=== PATIENT | female | born 1955 | race Caucasian/White ===

== ENCOUNTER → 2020-03-26 | Outpatient (CLI) | payer OTHER ==
[2020-03-26 09:57] LABS: Basophils # (auto) 0.1 10 ^3/uL (0-0.2); Basophils % (auto) 0.9 % (0.0-2.0); Eosinophils # (auto) 0.4 10 ^3/uL (0-0.8); Eosinophils % (auto) 5.2 % (0.0-7.0); Hematocrit 49.9 % (36.0-46.0); Hemoglobin 16.3 g/dL (12.2-16.2); Lymphocytes # (auto) 3.3 10 ^3/uL (0.4-5.4); Lymphocytes % (auto) 40.4 % (10.0-50.0); Mean Corpuscular Hemoglobin 28.2 pg (28.0-32.0); Mean Corpuscular Hgb Conc. 32.6 g/dL (32.0-36.0); Mean Corpuscular Volume 86.7 fL (80.0-100.0); Monocytes # (auto) 0.6 10 ^3/uL (0-1.3); Monocytes % (auto) 7.1 % (0.0-12.0); Neutrophils # (auto) 3.8 10 ^3/uL (1.6-8.6); Neutrophils % (auto) 46.4 % (37.0-80.0); Nucleated Red Blood Cells % 0.1 %; Platelet Count (auto) 310 10^3/uL (140-450); Red Blood Cells 5.76 10^6/uL (4.0-5.20); Red Cell Distribution Width 14.3 % (11.8-14.3); White Blood Cell 8.3 10^3/uL (4.4-10.8)
[2020-03-26 10:49] LABS: Calcium 9.6 mg/dL (8.5-10.1); Potassium 4.9 mmol/L (3.5-5.1)
[2020-03-26 10:53] LABS: BUN/Creatinine Ratio 18.9; Bilirubin, Total 0.7 mg/dL (0.2-1.0); Total Protein 8.6 g/dL (6.4-8.2)
[2020-03-28 14:32] LABS: Urine Bacteria FEW /hpf (None Seen); Urine Blood Negative /uL (Negative); Urine Specific Gravity 1.013 (1.001-1.035); Urine WBC 1 /hpf (0 - 5)
== END | disposition home or self-care (01) ==
LOC: LAB 09:36
PROVIDERS: ATTEND Internal Medicine
DX: R73.03 Prediabetes (principal); E78.5 Hyperlipidemia, unspecified; R10.9 Unspecified abdominal pain
CPT/HCPCS: 36415; 80053; 80061; 81001; 82043; 82270; 83036; 84156; 84166; 84443; 85025

== ENCOUNTER → 2020-04-04 | Outpatient (CLI) | payer OTHER | END | disposition home or self-care (01) | LOC: LAB 15:42 | PROVIDERS: ATTEND Nurse Practitioner Family | DX: Z03.818 Encounter for observation for suspected exposure to other biological agents ruled out (principal) ==

== ENCOUNTER → 2020-07-19 | Outpatient (CLI) | payer OTHER ==
[2020-07-19 09:44] LABS: Basophils # (auto) 0.1 10 ^3/uL (0-0.2); Eosinophils # (auto) 0.5 10 ^3/uL (0-0.8); Eosinophils % (auto) 6.5 % (0.0-7.0); Hematocrit 47.4 % (36.0-46.0); Hemoglobin 15.2 g/dL (12.2-16.2); Lymphocytes # (auto) 2.9 10 ^3/uL (0.4-5.4); Lymphocytes % (auto) 41.2 % (10.0-50.0); Mean Corpuscular Hemoglobin 28.1 pg (28.0-32.0); Mean Corpuscular Hgb Conc. 31.9 g/dL (32.0-36.0); Mean Corpuscular Volume 87.9 fL (80.0-100.0); Monocytes # (auto) 0.6 10 ^3/uL (0-1.3); Monocytes % (auto) 8.4 % (0.0-12.0); Neutrophils % (auto) 42.9 % (37.0-80.0); Nucleated Red Blood Cells % 0.1 %; Platelet Count (auto) 271 10^3/uL (140-450); Red Cell Distribution Width 13.7 % (11.8-14.3)
[2020-07-19 09:47] LABS: Urine Bacteria FEW /hpf (None Seen); Urine Blood Negative /uL (Negative); Urine Specific Gravity 1.011 (1.001-1.035); Urine WBC 2 /hpf (0 - 5)
[2020-07-19 10:18] LABS: Cholesterol 229 mg/dL (< 200); HDL Cholesterol 35 mg/dL (40-59); LDL Cholesterol 158 mg/dL (< 100); Triglycerides 317 mg/dL (< 150)
== END | disposition home or self-care (01) ==
LOC: LAB 09:24
PROVIDERS: ATTEND Internal Medicine
DX: R73.03 Prediabetes (principal)
CPT/HCPCS: 36415; 80061; 81001; 85025

== ENCOUNTER → 2020-08-09 | Outpatient (CLI) | payer OTHER | END | disposition home or self-care (01) | LOC: XYW 08:07 | PROVIDERS: ATTEND Internal Medicine | DX: I08.1 Rheumatic disorders of both mitral and tricuspid valves (principal); J98.4 Other disorders of lung; I27.20 Pulmonary hypertension, unspecified | CPT/HCPCS: 93306 ==

== ENCOUNTER 2021-04-24 11:02 | Inpatient (IN) | payer OTHER ==
[~2021-04-24] VITALS: Ht 167.6 cm; Wt 102.2 kg
[2021-04-24 12:07] LABS: Basophils # (auto) 0.1 10 ^3/uL (0-0.2); Basophils % (auto) 1.1 % (0.0-2.0); Eosinophils # (auto) 0.5 10 ^3/uL (0-0.8); Eosinophils % (auto) 5.5 % (0.0-7.0); Hematocrit 45.4 % (36.0-46.0); Hemoglobin 15.3 g/dL (12.2-16.2); Lymphocytes # (auto) 3.8 10 ^3/uL (0.4-5.4); Lymphocytes % (auto) 38.5 % (10.0-50.0); Mean Corpuscular Hemoglobin 29.3 pg (28.0-32.0); Mean Corpuscular Hgb Conc. 33.6 g/dL (32.0-36.0); Monocytes # (auto) 0.7 10 ^3/uL (0-1.3); Monocytes % (auto) 7.4 % (0.0-12.0); Neutrophils # (auto) 4.8 10 ^3/uL (1.6-8.6); Neutrophils % (auto) 47.5 % (37.0-80.0); Platelet Count (auto) 300 10^3/uL (140-450); Red Blood Cells 5.22 10^6/uL (4.0-5.20)
[2021-04-24 12:22] LABS: Albumin 3.6 g/dL (3.4-5.0); Anion Gap 4 (5-15); Blood Urea Nitrogen 17 mg/dL (7-18); Calcium 9.3 mg/dL (8.5-10.1); Carbon Dioxide 28 mmol/L (21-32); Chloride 106 mmol/L (98-107); Glucose 148 mg/dL (74-106); Potassium 4.5 mmol/L (3.5-5.1); Sodium 138 mmol/L (136-145)
[2021-04-24 12:34] LABS: Alkaline Phosphatase 54 U/L (45-117); Aspartate Aminotransferase 41 U/L (15-37); GFR African American 101 mL/min; GFR Non-African American 83 mL/min
[2021-04-24 12:35] LABS: Alanine Aminotransferase 42 U/L (13-56); Bilirubin, Total 0.6 mg/dL (0.2-1.0); Total Protein 8.2 g/dL (6.4-8.2)
[2021-04-24] MEDS ORDERED: ASPirin 81 mg TAB PO ONE (13:30)
[2021-04-24 14:01] LABS: INR 0.99 (0.9-1.15); Partial Thromboplastin Time 26.3 sec (23.0-31.2)
[2021-04-24] MEDS ORDERED: IOHEXOL 350 MG/ML 100ML IJ ONE (16:23)
[2021-04-24] MEDS ORDERED: NITROGLYCERIN 0.4 MG SL TAB SL PRN (18:00)
[2021-04-24] MEDS ORDERED: ONDANSETRON HCL 4 MG/2 ML VIAL IV PRN (18:00)
[2021-04-24] MEDS ORDERED: HYDROcodone-ACET 5/325MG TAB PO PRN (18:00)
[2021-04-24] MEDS ORDERED: MORPHINE SULF INJ 2 MG/ML SYRINGE 1ML IV PRN ×2 (18:00)
[2021-04-24] MEDS ORDERED: NITROGLYCERIN 0.4MG/HR TOPICAL PATCH TD ONE (18:00)
[2021-04-24] MEDS ORDERED: hydrALAZINE HCL 20 MG/ML VL IV PRN (18:00)
[2021-04-24] MEDS ORDERED: DEXTROSE (50%) 50ML SYRG IV PRN (18:00)
[2021-04-24 18:57] LABS: Cholesterol 234 mg/dL (< 200)
[2021-04-24 19:00] LABS: HDL Cholesterol 37 mg/dL (40-59); LDL Cholesterol 166 mg/dL (< 100); Triglycerides 207 mg/dL (< 150)
[2021-04-24 22:00] VITALS: BP 126/57
[2021-04-24] MEDS: InsuLIN REG 1unit/0.01ml Soln (100units/ml) SC SCH (22:00)
[2021-04-24 23:00] VITALS: BP 126/57
[2021-04-25] MEDS: ACCU-CHEK COMFORT CURVE STRIP VI SCH ×5 (00:14→23:04)
[2021-04-25] MEDS: ATORVASTATIN 20 MG TAB PO SCH ×2 (00:18→23:09)
[2021-04-25] MEDS: METOPROLOL TARTRATE 25 MG TAB PO SCH ×2 (00:20→10:00)
[2021-04-25 05:04] VITALS: BP 103/58
[2021-04-25] MEDS ORDERED: IBUP200T76 PO (05:10)
[2021-04-25] MEDS ORDERED: VITA100072 PO (05:10)
[2021-04-25] MEDS ORDERED: CALC-332 OR (05:10)
[2021-04-25] MEDS ORDERED: TURM500C PO (05:10)
[2021-04-25] MEDS ORDERED: IBUP800T26 PO (05:10)
[2021-04-25] MEDS ORDERED: ASCO-22 PO (05:10)
[2021-04-25] MEDS ORDERED: METF-370 PO (05:10)
[2021-04-25] MEDS ORDERED: GOLD500C3 PO (05:10)
[2021-04-25] MEDS ORDERED: [UNRECOGNIZED DRUG - CODE] PO (05:10)
[2021-04-25] MEDS ORDERED: CYAN250L PO (05:10)
[2021-04-25] MEDS ORDERED: SENN-58 PO (05:10)
[2021-04-25] MEDS: InsuLIN REG 1unit/0.01ml Soln (100units/ml) SC SCH ×4 (06:13→22:00)
[2021-04-25] MEDS: ACETAMINOPHEN 500 MG TAB PO PRN (06:48)
[2021-04-25 08:00] VITALS: BP 131/65
[2021-04-25] MEDS: NICOTINE 14 MG/24HR TOPICAL PATCH TD SCH (10:00)
[2021-04-25 12:00] VITALS: BP 124/58
[2021-04-25] MEDS: ASPirin-EC 81 mg tab PO SCH (12:04)
[2021-04-25] MEDS: FAMOTIDINE 20 MG TAB PO SCH (12:05)
[2021-04-25] MEDS: LISINOPRIL 10 MG TAB PO SCH (12:05)
[2021-04-25 17:00] VITALS: BP 130/68
[2021-04-25 22:00] VITALS: BP 105/56
[2021-04-26 05:00] VITALS: BP 96/57
[2021-04-26] MEDS: ACCU-CHEK COMFORT CURVE STRIP VI SCH ×2 (07:00→11:30)
[2021-04-26] MEDS: InsuLIN REG 1unit/0.01ml Soln (100units/ml) SC SCH ×2 (07:00→11:30)
[2021-04-26 08:15] VITALS: BP 114/61
[2021-04-26 08:49] VITALS: BP 114/61
[2021-04-26] MEDS: ASPirin-EC 81 mg tab PO SCH (09:46)
[2021-04-26] MEDS: NICOTINE 14 MG/24HR TOPICAL PATCH TD SCH (09:47)
[2021-04-26] MEDS: LISINOPRIL 10 MG TAB PO SCH (09:47)
[2021-04-26] MEDS: FAMOTIDINE 20 MG TAB PO SCH (09:47)
[2021-04-26] MEDS ORDERED: ATOR20TA PO (10:33)
[2021-04-26] MEDS ORDERED: LISI20TA28 PO (10:33)
[2021-04-26] MEDS ORDERED: NIC21P TOP (10:34)
[2021-04-26 12:31] VITALS: BP 114/61
[2021-04-26] MEDS: ACETAMINOPHEN 500 MG TAB PO PRN (12:56)
== END 2021-04-26 14:15 | disposition home or self-care (01) | DRG 313 ==
LOC: ER 11:02 → TELE 17:58 → TELE-CENTR 22:48
PROVIDERS: ADMIT Nurse Practitioner Acute Care; ATTEND Internal Medicine
DX: R07.89 Other chest pain (principal); I50.33 Acute on chronic diastolic (congestive) heart failure; I27.20 Pulmonary hypertension, unspecified; K76.0 Fatty (change of) liver, not elsewhere classified; K80.20 Calculus of gallbladder without cholecystitis without obstruction; E11.9 Type 2 diabetes mellitus without complications; J44.9 Chronic obstructive pulmonary disease, unspecified; E66.01 Morbid (severe) obesity due to excess calories; Z91.14 Patient's other noncompliance with medication regimen; Z20.822 Contact with and (suspected) exposure to COVID-19; Z88.0 Allergy status to penicillin; Z68.35 Body mass index [BMI] 35.0-35.9, adult; E78.5 Hyperlipidemia, unspecified; F12.90 Cannabis use, unspecified, uncomplicated; F17.210 Nicotine dependence, cigarettes, uncomplicated; I11.0 Hypertensive heart disease with heart failure; I25.10 Atherosclerotic heart disease of native coronary artery without angina pectoris; K44.9 Diaphragmatic hernia without obstruction or gangrene; Z79.84 Long term (current) use of oral hypoglycemic drugs; Z82.49 Family history of ischemic heart disease and other diseases of the circulatory system; Z90.710 Acquired absence of both cervix and uterus
CPT/HCPCS: 36415; 71046; 71275; 78452; 80053; 80061; 82962; 83735; 83880; 84443; 84484; 85025; 85379; 85610; 85730; 86141; 87426; 93005; 93017; 93306; G0378

== ENCOUNTER → 2021-04-24 | Outpatient (CLI) | payer OTHER ==
[~2021-04-24] MED LIST: ASCO-22 PO; CALC-332 OR; CYAN250L PO; GOLD500C3 PO; IBUP200T76 PO; IBUP800T26 PO; METF-370 PO; SENN-58 PO; TURM500C PO; VITA100072 PO; [UNRECOGNIZED DRUG - CODE] PO
== END | disposition home or self-care (01) ==
LOC: LAB 07:22
PROVIDERS: ATTEND Internal Medicine
DX: Z12.11 Encounter for screening for malignant neoplasm of colon (principal); E11.9 Type 2 diabetes mellitus without complications
CPT/HCPCS: 82043; 82962

== ENCOUNTER → 2021-05-23 | Outpatient (CLI) | payer OTHER ==
[~2021-05-23] MED LIST changes: +ATOR20TA PO; +LISI20TA28 PO; +NIC21P TOP
[2021-05-23 09:13] LABS: Albumin 3.8 g/dL (3.4-5.0)
[2021-05-23 09:19] LABS: Bilirubin, Direct 0.2 mg/dL (0-0.2); Bilirubin, Total 0.8 mg/dL (0.2-1.0); Total Protein 8.1 g/dL (6.4-8.2)
== END | disposition home or self-care (01) ==
LOC: LAB 07:05
PROVIDERS: ATTEND Internal Medicine
DX: E78.5 Hyperlipidemia, unspecified (principal)
CPT/HCPCS: 36415; 80076; 82270

== ENCOUNTER → 2021-08-26 | Outpatient (CLI) | payer OTHER ==
[~2021-08-26] MED LIST changes: -LISI20TA28 PO
[2021-08-26 08:38] LABS: Albumin 3.5 g/dL (3.4-5.0); Bilirubin, Direct 0.1 mg/dL (0-0.2)
[2021-08-26 08:41] LABS: Bilirubin, Total 0.4 mg/dL (0.2-1.0); Total Protein 7.5 g/dL (6.4-8.2)
== END | disposition home or self-care (01) ==
LOC: LAB 07:33
PROVIDERS: ATTEND Internal Medicine
DX: E78.5 Hyperlipidemia, unspecified (principal)
CPT/HCPCS: 36415; 80076

== ENCOUNTER → 2021-11-18 | Outpatient (CLI) | payer OTHER ==
[2021-11-18 09:11] LABS: Albumin 3.7 g/dL (3.4-5.0); Bilirubin, Direct 0.2 mg/dL (0-0.2); Bilirubin, Total 0.5 mg/dL (0.2-1.0); Total Protein 7.4 g/dL (6.4-8.2)
== END | disposition home or self-care (01) ==
LOC: LAB 07:12
PROVIDERS: ATTEND Internal Medicine
DX: E11.9 Type 2 diabetes mellitus without complications (principal); E78.5 Hyperlipidemia, unspecified
CPT/HCPCS: 36415; 80061; 80076; 83036

== ENCOUNTER → 2022-02-04 | Outpatient (CLI) | payer OTHER ==
[2022-02-04 09:00] LABS: Cholesterol 128 mg/dL (< 200); HDL Cholesterol 36 mg/dL (40-59); LDL Cholesterol 68 mg/dL (< 100); Triglycerides 142 mg/dL (< 150)
== END | disposition home or self-care (01) ==
LOC: LAB 07:19
PROVIDERS: ATTEND Internal Medicine
DX: E11.9 Type 2 diabetes mellitus without complications (principal); E78.5 Hyperlipidemia, unspecified
CPT/HCPCS: 36415; 80061; 82043; 83036

== ENCOUNTER → 2022-05-28 | Outpatient (CLI) | payer OTHER ==
[2022-05-28 08:30] LABS: Albumin 3.9 g/dL (3.4-5.0); Calcium 9.2 mg/dL (8.5-10.1); Potassium 4.6 mmol/L (3.5-5.1)
[2022-05-28 08:33] LABS: Bilirubin, Direct 0.2 mg/dL (0-0.2); Bilirubin, Total 0.6 mg/dL (0.2-1.0)
== END | disposition home or self-care (01) ==
LOC: LAB 07:38
PROVIDERS: ATTEND Internal Medicine
DX: E78.5 Hyperlipidemia, unspecified (principal); E11.9 Type 2 diabetes mellitus without complications
CPT/HCPCS: 36415; 80053; 80076; 82607

== ENCOUNTER 2022-06-02 15:11 | Emergency (ER) | payer OTHER ==
[~2022-06-02] VITALS: Ht 165.1 cm; Wt 81.2 kg
[2022-06-02 15:12] VITALS: BP 110/76
[2022-06-02] MEDS ORDERED: cefTRIAXone SOD 1,000 MG VL IM ONE (18:15)
[2022-06-02] MEDS ORDERED: CEPH-509 PO (18:15)
[2022-06-02] MEDS ORDERED: HYDR-4902 PO (18:18)
[2022-06-02] MEDS ORDERED: HYDROcodone-ACET 10/325MG TAB PO ONE (18:30)
== END 2022-06-02 19:06 | disposition home or self-care (01) ==
LOC: ER 15:11 → EDBD 15:11 → ER 19:06
DX: S01.81XA Laceration without foreign body of other part of head, initial encounter (principal); E11.9 Type 2 diabetes mellitus without complications; I10 Essential (primary) hypertension; F17.210 Nicotine dependence, cigarettes, uncomplicated; M25.512 Pain in left shoulder; Z90.710 Acquired absence of both cervix and uterus; Z88.0 Allergy status to penicillin; V80.010A Animal-rider injured by fall from or being thrown from horse in noncollision accident, initial encounter; Y93.89 Activity, other specified; Y92.89 Other specified places as the place of occurrence of the external cause; Y99.8 Other external cause status
CPT/HCPCS: 12015; 70450; 72192; 73030; 93005; 96372; 99284; J0696

== ENCOUNTER → 2022-10-06 | Outpatient (CLI) | payer OTHER ==
[~2022-10-06] MED LIST changes: +CEPH-509 PO; +HYDR-4902 PO
[2022-10-06 08:30] LABS: Urine Blood Negative /uL (Negative); Urine Specific Gravity 1.018 (1.001-1.035)
[2022-10-06 13:35] LABS: Cholesterol 155 mg/dL (< 200); HDL Cholesterol 36 mg/dL (40-59); LDL Cholesterol 104 mg/dL (< 100); Triglycerides 231 mg/dL (< 150)
== END | disposition home or self-care (01) ==
LOC: LAB 08:05
PROVIDERS: ATTEND Internal Medicine
DX: E11.9 Type 2 diabetes mellitus without complications (principal)
CPT/HCPCS: 36415; 80061; 81003; 82043; 83036

== ENCOUNTER → 2023-01-14 | Outpatient (CLI) | payer OTHER ==
[2023-01-14 09:20] LABS: Uric Acid 5.3 mg/dL (2.6-6.0)
== END | disposition home or self-care (01) ==
LOC: LAB 07:55
PROVIDERS: ATTEND Internal Medicine
DX: I10 Essential (primary) hypertension (principal); E11.9 Type 2 diabetes mellitus without complications; E78.5 Hyperlipidemia, unspecified; M54.50 Low back pain, unspecified
CPT/HCPCS: 36415; 80061; 82951; 83036; 84443; 84550; 85652

== ENCOUNTER 2023-01-22 10:34 | Inpatient (IN) | payer OTHER, MEDICAID ==
[~2023-01-22] VITALS: Ht 167.6 cm; Wt 97.4 kg
[2023-01-22] MEDS ORDERED: ACETAMINOPHEN 500 MG TAB PO PRN (11:30)
[2023-01-22] MEDS ORDERED: NITROGLYCERIN 0.4 MG SL TAB SL PRN (11:30)
[2023-01-22] MEDS ORDERED: TEMAZEPAM 15 MG CAP PO PRN (11:30)
[2023-01-22] MEDS ORDERED: ONDANSETRON HCL 4 MG/2 ML VIAL IV PRN (11:30)
[2023-01-22] MEDS ORDERED: MORPHINE SULFATE INJ 2 MG/ml SYRG IV PRN ×2 (11:30)
[2023-01-22 12:07] VITALS: BP 163/72
[2023-01-22] MEDS ORDERED: DEXTROSE (50%) 50ML SYRG IV PRN (12:45)
[2023-01-22 14:00] VITALS: BP 161/63
[2023-01-22 16:00] VITALS: BP 161/63
[2023-01-22] MEDS: SODIUM CHLORIDE 0.9% 1,000 ML IV SCH (16:43)
[2023-01-22] MEDS: InsuLIN REG 1unit/0.01ml Soln (100units/ml) SC SCH ×2 (17:00→22:00)
[2023-01-22 17:28] VITALS: BP 133/59
[2023-01-22] MEDS: ACCU-CHEK COMFORT CURVE STRIP VI SCH ×2 (17:41→22:00)
[2023-01-22 22:00] VITALS: BP 152/62
[2023-01-23] VITALS (10 sets, daily range): BP systolic 111–151; BP diastolic 51–88
[2023-01-23 06:19] LABS: Hemoglobin 14.1 g/dL (12.2-16.2); Mean Corpuscular Hemoglobin 28.9 pg (28.0-32.0); Mean Corpuscular Hgb Conc. 33.6 g/dL (32.0-36.0); Red Blood Cells 4.88 10^6/uL (4.0-5.20); Red Cell Distribution Width 14.8 % (11.8-14.3); White Blood Cell 7.1 10^3/uL (4.4-10.8)
[2023-01-23 06:23] LABS: Basophils % (manual) 0 (0.0-2.0); Metamyelocytes % 0; Myelocytes % 0; Promyelocytes % 0; Reactive Lymphocytes 0
[2023-01-23 06:24] LABS: Blast Cells 0
[2023-01-23 06:29] LABS: INR 0.98 (0.9-1.15)
[2023-01-23] MEDS: InsuLIN REG 1unit/0.01ml Soln (100units/ml) SC SCH ×4 (06:29→22:00)
[2023-01-23] MEDS: ACCU-CHEK COMFORT CURVE STRIP VI SCH ×4 (06:30→22:41)
[2023-01-23 06:48] LABS: Potassium 4.1 mmol/L (3.5-5.1)
[2023-01-23 07:11] LABS: Albumin 3.6 g/dL (3.4-5.0); Calcium 9.3 mg/dL (8.5-10.1)
[2023-01-23 07:22] LABS: Bilirubin, Total 0.5 mg/dL (0.2-1.0); Total Protein 7.8 g/dL (6.4-8.2)
[2023-01-23 08:39] LABS: Band Neutrophils % (manual) 2; Eosinophils % (manual) 4 (0-7); Lymphocytes % (manual) 63 (10.0-50.0); Monocytes % (manual) 6 (0-12)
[2023-01-23] MEDS: SODIUM CHLORIDE 0.9% 1,000 ML IV SCH (12:15)
[2023-01-23] MEDS ORDERED: VANCOMYCIN 1GM/250ML 250 ML IV ONE (13:15)
[2023-01-23] MEDS ORDERED: LIDOCAINE 2%HCL (LOCAL ANESTH.) INJ 20ML MDV ONE ×2 (13:37→15:19)
[2023-01-23] MEDS ORDERED: MIDAZOLAM HCL 2MG/2ML 2ml VIAL (1mg/ml) ONE (14:52)
[2023-01-23] MEDS ORDERED: fentaNYL CITRATE 100 MCG/2 ML VL ONE (14:52)
[2023-01-23] MEDS ORDERED: VANCOMYCIN HCL 1000 MG VL ONE (14:54)
[2023-01-23] MEDS ORDERED: levoFLOXacin 500MG 100 ML IV ONE (16:15)
[2023-01-23 16:25] LABS: Urine Bacteria MOD /hpf (None Seen); Urine Blood Negative /uL (Negative); Urine Specific Gravity 1.012 (1.001-1.035); Urine WBC 1 /hpf (0 - 5)
[2023-01-23] MEDS: HYDROcodone-ACET 5/325MG TAB PO PRN (17:32)
[2023-01-23] MEDS ORDERED: MELATONIN 5 MG TAB PO SCH (22:00)
[2023-01-24] MEDS ORDERED: VANCOMYCIN 1GM/250ML 250 ML IV SCH (04:00)
[2023-01-24 05:00] VITALS: BP 124/58
[2023-01-24 05:57] LABS: Basophils # (auto) 0.1 10 ^3/uL (0-0.2); Eosinophils # (auto) 0.4 10 ^3/uL (0-0.8); Eosinophils % (auto) 5.7 % (0.0-7.0); Hematocrit 40.1 % (36.0-46.0); Hemoglobin 13.4 g/dL (12.2-16.2); Lymphocytes # (auto) 3.3 10 ^3/uL (0.4-5.4); Lymphocytes % (auto) 45.1 % (10.0-50.0); Mean Corpuscular Hemoglobin 28.8 pg (28.0-32.0); Mean Corpuscular Hgb Conc. 33.4 g/dL (32.0-36.0); Mean Corpuscular Volume 86.2 fL (80.0-100.0); Monocytes # (auto) 0.5 10 ^3/uL (0-1.3); Monocytes % (auto) 6.9 % (0.0-12.0); Neutrophils # (auto) 3.1 10 ^3/uL (1.6-8.6); Neutrophils % (auto) 41.3 % (37.0-80.0); Nucleated Red Blood Cells % 0.2 %; Red Blood Cells 4.66 10^6/uL (4.0-5.20); Red Cell Distribution Width 14.6 % (11.8-14.3); White Blood Cell 7.4 10^3/uL (4.4-10.8)
[2023-01-24 06:21] LABS: BUN/Creatinine Ratio 28.8; Calcium 8.9 mg/dL (8.5-10.1)
[2023-01-24] MEDS: InsuLIN REG 1unit/0.01ml Soln (100units/ml) SC SCH ×3 (07:00→17:00)
[2023-01-24] MEDS: ACCU-CHEK COMFORT CURVE STRIP VI SCH ×3 (07:33→17:00)
[2023-01-24] MEDS: HYDROcodone-ACET 5/325MG TAB PO PRN ×3 (07:34→13:44)
[2023-01-24 08:00] VITALS: BP 135/60
[2023-01-24 09:00] VITALS: BP 135/60
[2023-01-24 13:00] VITALS: BP 118/57
[2023-01-24] MEDS: SODIUM CHLORIDE 0.9% 1,000 ML IV SCH (13:39)
[2023-01-24] MEDS ORDERED: HYDR-4902 PO (13:48)
[2023-01-24] MEDS ORDERED: DOXY-332 PO (13:48)
[2023-01-24 17:31] VITALS: BP 135/60
== END 2023-01-24 18:00 | disposition home or self-care (01) | DRG 244 ==
LOC: TELE-CENTR 10:46
PROVIDERS: ADMIT Internal Medicine; ATTEND Internal Medicine
PROC: 02H63JZ Insertion of Pacemaker Lead into Right Atrium, Percutaneous Approach (ICD-10-PCS; 2023-01-23)
PROC: 02HK3JZ Insertion of Pacemaker Lead into Right Ventricle, Percutaneous Approach (ICD-10-PCS; 2023-01-23)
PROC: B5171ZZ Fluoroscopy of Left Subclavian Vein using Low Osmolar Contrast (ICD-10-PCS; 2023-01-23)
PROC: 0JH606Z Insertion of Pacemaker, Dual Chamber into Chest Subcutaneous Tissue and Fascia, Open Approach (ICD-10-PCS; principal; 2023-01-23 15:15)
DX: I49.5 Sick sinus syndrome (principal); I44.0 Atrioventricular block, first degree; I12.9 Hypertensive chronic kidney disease with stage 1 through stage 4 chronic kidney disease, or unspecified chronic kidney disease; E11.22 Type 2 diabetes mellitus with diabetic chronic kidney disease; E78.5 Hyperlipidemia, unspecified; I27.20 Pulmonary hypertension, unspecified; R55 Syncope and collapse; Z20.822 Contact with and (suspected) exposure to COVID-19; E66.9 Obesity, unspecified; N18.9 Chronic kidney disease, unspecified; M19.90 Unspecified osteoarthritis, unspecified site; Z91.14 Patient's other noncompliance with medication regimen; Z82.49 Family history of ischemic heart disease and other diseases of the circulatory system; Z87.891 Personal history of nicotine dependence; Z88.0 Allergy status to penicillin
CPT/HCPCS: 36415; 71045; 80048; 80053; 81001; 82962; 83880; 84443; 85007; 85025; 85027; 85610; 87426; 93005; 93306; 99152; C1785; G0378; J1956; J2250

== ENCOUNTER → 2023-02-23 | Outpatient (CLI) | payer OTHER ==
[~2023-02-23] MED LIST changes: -ASCO-22 PO; -ATOR20TA PO; -CALC-332 OR; -CEPH-509 PO; -CYAN250L PO; +DOXY-332 PO; -GOLD500C3 PO; -IBUP200T76 PO; -IBUP800T26 PO; -METF-370 PO; -NIC21P TOP; -SENN-58 PO; -TURM500C PO; -VITA100072 PO; -[UNRECOGNIZED DRUG - CODE] PO
== END | disposition home or self-care (01) ==
LOC: Rad HDHVI 10:04
PROVIDERS: ATTEND Internal Medicine Cardiovascular Disease
DX: I10 Essential (primary) hypertension (principal); E78.5 Hyperlipidemia, unspecified
CPT/HCPCS: 93306

== ENCOUNTER → 2023-02-24 | Outpatient (CLI) | payer OTHER ==
[~2023-02-24] VITALS: Ht 167.6 cm; Wt 93.0 kg
== END | disposition home or self-care (01) ==
LOC: Rad HDHVI 08:54
PROVIDERS: ATTEND Internal Medicine Cardiovascular Disease
DX: I10 Essential (primary) hypertension (principal); I49.5 Sick sinus syndrome; I44.1 Atrioventricular block, second degree; E78.5 Hyperlipidemia, unspecified; E11.9 Type 2 diabetes mellitus without complications; R55 Syncope and collapse; Z95.0 Presence of cardiac pacemaker
CPT/HCPCS: 78452; 93017; 96374; A9500

== ENCOUNTER → 2023-03-09 | Outpatient (CLI) | payer OTHER ==
[2023-03-09 08:56] LABS: Cholesterol 127 mg/dL (< 200)
[2023-03-09 08:59] LABS: HDL Cholesterol 43 mg/dL (40-59); LDL Cholesterol 67 mg/dL (< 100); Triglycerides 129 mg/dL (< 150)
== END | disposition home or self-care (01) ==
LOC: LAB 07:58
PROVIDERS: ATTEND Internal Medicine
DX: E78.5 Hyperlipidemia, unspecified (principal)
CPT/HCPCS: 36415; 80061

== ENCOUNTER 2023-10-21 12:10 | Emergency (ER) | payer OTHER, MEDICAID ==
[~2023-10-21] VITALS: Ht 167.6 cm; Wt 98.9 kg
[~2023-10-21 12:10] MED LIST changes: -DOXY-332 PO; +DOXY-448 PO
[2023-10-21 12:42] VITALS: BP 184/82; PULSE 88; RESP 18; TEMP 98.6; O2SAT 95
[2023-10-21] MEDS ORDERED: FAMOTIDINE 20 MG TAB PO ONE (13:15)
[2023-10-21] MEDS ORDERED: hydrOXYzine 25 MG TAB or CAP PO ONE (13:15)
[2023-10-21] MEDS ORDERED: DexAMETHasone SOD PHOS 10MG/1ML VIAL INJ IM ONE (13:15)
[2023-10-21] MEDS ORDERED: PRED20TA2 PO (14:51)
[2023-10-21] MEDS ORDERED: FAMO20TA10 PO (14:51)
[2023-10-21] MEDS ORDERED: HYDR-3682 PO (14:51)
== END 2023-10-21 14:56 | disposition home or self-care (01) ==
LOC: ER 12:10
DX: T63.441A Toxic effect of venom of bees, accidental (unintentional), initial encounter (principal); I10 Essential (primary) hypertension; E11.9 Type 2 diabetes mellitus without complications; F17.210 Nicotine dependence, cigarettes, uncomplicated; Z98.890 Other specified postprocedural states; Z88.8 Allergy status to other drugs, medicaments and biological substances; Z79.899 Other long term (current) drug therapy; Y92.89 Other specified places as the place of occurrence of the external cause
CPT/HCPCS: 96372; 99283; J1100

== ENCOUNTER → 2023-12-03 | Outpatient (CLI) | payer OTHER ==
[~2023-12-03] MED LIST changes: +FAMO20TA10 PO; +HYDR-3682 PO; +PRED20TA2 PO
[2023-12-03 09:35] LABS: Basophils # (auto) 0.1 10 ^3/uL (0-0.2); Basophils % (auto) 0.8 % (0.0-2.0); Eosinophils # (auto) 0.6 10 ^3/uL (0-0.8); Eosinophils % (auto) 8.2 % (0.0-7.0); Hematocrit 44.6 % (36.0-46.0); Hemoglobin 14.4 g/dL (12.2-16.2); Lymphocytes # (auto) 3.3 10 ^3/uL (0.4-5.4); Lymphocytes % (auto) 43.1 % (10.0-50.0); Mean Corpuscular Hemoglobin 28.4 pg (28.0-32.0); Mean Corpuscular Hgb Conc. 32.3 g/dL (32.0-36.0); Mean Corpuscular Volume 87.8 fL (80.0-100.0); Monocytes # (auto) 0.5 10 ^3/uL (0-1.3); Neutrophils # (auto) 3.2 10 ^3/uL (1.6-8.6); Neutrophils % (auto) 40.9 % (37.0-80.0); Nucleated Red Blood Cells % 0.1 %; Red Blood Cells 5.08 10^6/uL (4.0-5.20); Red Cell Distribution Width 14.3 % (11.8-14.3); White Blood Cell 7.8 10^3/uL (4.4-10.8)
[2023-12-03 10:10] LABS: Alanine Aminotransferase 26 U/L (7-40); Alkaline Phosphatase 52 U/L (46-116); Anion Gap 5 (5-15); Calcium 9.7 mg/dL (8.5-10.1); Carbon Dioxide 28 mmol/L (20-30); Chloride 108 mmol/L (98-107); Potassium 4.8 mmol/L (3.5-5.1); Sodium 141 mmol/L (136-145)
[2023-12-03 10:12] LABS: BUN/Creatinine Ratio 14.6 (10.0-20.0); Blood Urea Nitrogen 12 mg/dL (9-23); Glucose 130 mg/dL (74-106); Triglycerides 305 mg/dL (< 150)
[2023-12-03 10:13] LABS: LDL Cholesterol 138 mg/dL (< 100)
[2023-12-03 10:14] LABS: Albumin 4.3 g/dL (3.2-4.8); Aspartate Aminotransferase 24 U/L (13-40); Bilirubin, Total 0.7 mg/dL (0.2-1.0); Cholesterol 216 mg/dL (< 200); HDL Cholesterol 33 mg/dL (40-59); Total Protein 7.2 g/dL (5.7-8.2)
== END | disposition home or self-care (01) ==
LOC: LAB 09:22
PROVIDERS: ATTEND Internal Medicine
DX: E11.9 Type 2 diabetes mellitus without complications (principal); E78.5 Hyperlipidemia, unspecified
CPT/HCPCS: 36415; 80053; 80061; 83036; 85025

== ENCOUNTER → 2025-02-23 | Outpatient (CLI) | payer OTHER ==
[~2025-02-23] MED LIST changes: -DOXY-448 PO; +DOXY100C79 PO
[2025-02-23 09:17] LABS: Creatinine, Urine 103.07 mg/dL (30.0-125.0)
[2025-02-23 09:22] LABS: Alanine Aminotransferase 25 U/L (7-40); Anion Gap 8 (5-15); Blood Urea Nitrogen 17 mg/dL (9-23); Carbon Dioxide 24 mmol/L (20-31); Chloride 107 mmol/L (98-107); LDL Cholesterol 78 mg/dL (< 100); Magnesium 2.1 mg/dL (1.6-2.6); Potassium 4.8 mmol/L (3.5-5.1); Sodium 139 mmol/L (136-145); Total Protein 7.8 g/dL (5.7-8.2); Triglycerides 137 mg/dL (< 150)
[2025-02-23 09:23] LABS: Albumin 4.8 g/dL (3.2-4.8); Aspartate Aminotransferase 26 U/L (13-40); Bilirubin, Total 0.6 mg/dL (0.2-1.0); Cholesterol 134 mg/dL (< 200)
[2025-02-23 09:38] LABS: Alkaline Phosphatase 38 U/L (46-116); Glucose 142 mg/dL (74-106); HDL Cholesterol 35 mg/dL (40-59)
== END | disposition home or self-care (01) ==
LOC: LAB 08:11
PROVIDERS: ATTEND Internal Medicine
DX: E11.9 Type 2 diabetes mellitus without complications (principal); J44.9 Chronic obstructive pulmonary disease, unspecified; E78.5 Hyperlipidemia, unspecified; Z00.00 Encounter for general adult medical examination without abnormal findings
CPT/HCPCS: 36415; 80053; 80061; 82043; 82570; 82607; 83036; 83735

== ENCOUNTER → 2025-09-04 | Outpatient (CLI) | payer OTHER ==
[2025-09-04 11:35] LABS: Hematocrit 47.1 % (36.0-46.0); Hemoglobin 15.7 g/dL (12.2-16.2); Mean Corpuscular Hemoglobin 29.0 pg (28.0-32.0); Mean Corpuscular Volume 86.7 fL (80.0-100.0); Nucleated Red Blood Cells % 0.2 %
[2025-09-04 11:44] LABS: Urine Protein, UAD TRACE (Negative)
[2025-09-04 12:47] LABS: Microalb/Creat Ratio, Urine 126.0
[2025-09-04 13:14] LABS: Alanine Aminotransferase 43 U/L (7-40); Albumin 4.4 g/dL (3.2-4.8); Alkaline Phosphatase 56 U/L (46-116); Anion Gap 16 (5-15); BUN/Creatinine Ratio 14.8 (10.0-20.0); Bilirubin, Total 0.6 mg/dL (0.2-1.0); Blood Urea Nitrogen 13 mg/dL (9-23); Calcium 9.5 mg/dL (8.7-10.4); Carbon Dioxide 22 mmol/L (20-31); Chloride 102 mmol/L (98-107); Cholesterol 263 mg/dL (< 200); Glucose 160 mg/dL (74-106); HDL Cholesterol 39 mg/dL (40-59); Potassium 4.5 mmol/L (3.5-5.1); Sodium 140 mmol/L (136-145); Total Protein 7.9 g/dL (5.7-8.2); Triglycerides 234 mg/dL (< 150)
== END | disposition home or self-care (01) ==
LOC: LAB 09:55
PROVIDERS: ATTEND Internal Medicine
DX: E11.21 Type 2 diabetes mellitus with diabetic nephropathy (principal); E11.69 Type 2 diabetes mellitus with other specified complication; I50.32 Chronic diastolic (congestive) heart failure; Z12.11 Encounter for screening for malignant neoplasm of colon
CPT/HCPCS: 36415; 80053; 80061; 81001; 82043; 82270; 82570; 83036; 84443; 85025